=== PATIENT | male | born 1945 | race Caucasian/White ===

== ENCOUNTER 2016-05-29 12:58 | Emergency (ER) | payer MEDICARE, OTHER ==
[~2016-05-29] VITALS: Wt 149.7 kg
--- NOTE | ~2016-05-29 | EKG ---
[place], [place] ELECTROCARDIOGRAM REPORT NAME: JUAN WILDE UNIT #: [id number] ROOM: DOCTOR: ANIRUDH CAMACHO MD BIRTHDATE: [birth year] DOS: 05/29/2016 TIME: 1333 hours. Normal sinus rhythm at 87 beats per minute. The tracing is normal. No previous tracing is available for comparison. ANIRUDH CAMACHO MD CM:EKGRPT:ELECTROCARDIOGRAM REPORT [id number] ANIRUDH CAMACHO MD
[~2016-05-29 12:58] MED LIST: ADVIL200 M1 PO; ANTIVERT/2525 MG PO; ASPIRIN325 M2 PO; ATORVASTATIN CA80 M1 PO; CEPHALEXIN500 M1 PO; D3 DOTS2000 UNIT PO; DARVOCET N 1001 TAB PO; DAYPRO600 M1 PO; DOXYCYCLINE100 MG PO; GLIPIZIDE10 M2 PO; HYDROCODONE BIT1 T11 PO; LAMISIL AT11 TP; LISINOPRIL20 MG PO; MAGNESIUM OXID420 M1 PO; METFORMIN1000 MG PO; NOVOLIN 70100 UNIT/1 SQ; OMEPRAZOLE20 M2 PO; SULFAMETHOXAZOL1 TA1 PO; TERBINAFINE250 MG PO
[2016-05-29 13:35] LABS: BASO % 0.4 % (0.0-1.0); EOS # 0.2 10*3/uL (0.0-0.4); EOS % 2.1 % (1.0-4.0); HEMATOCRIT 43.3 % (42.0-52.0); HEMOGLOBIN 13.5 g/dl (14.0-18.0); LYMPH # 2.4 10*3/uL (1.3-4.4); LYMPH % 28.2 % (27.0-41.0); MEAN CELL VOLUME 87.7 fl (80.0-94.0); MEAN CORPUSCULAR HGB 27.3 pg (27.0-31.0); MEAN CORPUSCULAR HGB CONC 31.2 g/dl (33.0-37.0); MEAN PLATELET VOLUME 10.5 fl (9.6-12.3); MONO # 0.5 10*3/uL (0.1-1.0); NEUT # 5.4 10*3/uL (2.3-7.9); NEUT % 63.1 % (47.0-73.0); PLATELET COUNT AUTOMATED 200 10*3/uL (130-400); RED BLOOD COUNT 4.94 10*6/uL (4.50-5.90); RED CELL DISTRI WIDTH 15.1 % (0-14.5); WHITE BLOOD COUNT 8.6 10*3/uL (4.8-10.8)
[2016-05-29 13:43] LABS: PROTHROMBIN TIME 10.5 SECONDS (9.0-12.4)
[2016-05-29 13:51] LABS: ALBUMIN 3.3 gm/dl (3.1-4.5); ALKALINE PHOSPHATASE 102 U/L (45-117); BILIRUBIN, TOTAL 0.4 mg/dl (0.2-1.0); BUN 24 mg/dl (7-24); CARBON DIOXIDE 27 mmol/L (21-32); CHLORIDE 105 mmol/L (98-107); CPK 91 U/L (39-308); EST GLOM FILT AFRICAN AMERICAN > 60 ml/min; GLUCOSE 169 mg/dL (65-99); MAGNESIUM 1.7 mg/dL (1.5-2.1); POTASSIUM 4.7 mmol/L (3.5-5.1); SGOT/AST 19 IU/L (3-35); SGPT/ALT 31 U/L (12-78); SODIUM 144 mmol/L (136-145); TOTAL PROTEIN 7.1 gm/dL (6.4-8.2)
[2016-05-29 13:53] LABS: CKMB 2.1 ng/ml (0.5-3.6)
[2016-05-29 13:54] LABS: TROPONIN I < 0.015 ng/ml (<0.045)
== END 2016-05-29 15:22 | disposition home or self-care (01) ==
LOC: ED 12:58
PROVIDERS: Registered Nurse
DX: M79.601 Pain in right arm (principal); M47.812 Spondylosis without myelopathy or radiculopathy, cervical region; M19.90 Unspecified osteoarthritis, unspecified site; Z90.89 Acquired absence of other organs; Z79.899 Other long term (current) drug therapy

== ENCOUNTER → 2016-06-12 | Outpatient (CLI) | payer MEDICARE ==
[2016-06-12 15:09] LABS: BASO % 0.4 % (0.0-1.0); EOS # 0.2 10*3/uL (0.0-0.4); EOS % 1.9 % (1.0-4.0); HEMATOCRIT 43.3 % (42.0-52.0); HEMOGLOBIN 13.6 g/dl (14.0-18.0); LYMPH # 2.1 10*3/uL (1.3-4.4); LYMPH % 23.6 % (27.0-41.0); MEAN CELL VOLUME 88.4 fl (80.0-94.0); MEAN CORPUSCULAR HGB 27.8 pg (27.0-31.0); MEAN CORPUSCULAR HGB CONC 31.4 g/dl (33.0-37.0); MEAN PLATELET VOLUME 10.4 fl (9.6-12.3); MONO # 0.6 10*3/uL (0.1-1.0); MONO % 6.5 % (3.0-9.0); NEUT % 67.2 % (47.0-73.0); PLATELET COUNT AUTOMATED 223 10*3/uL (130-400); RED CELL DISTRI WIDTH 14.8 % (0-14.5); WHITE BLOOD COUNT 8.9 10*3/uL (4.8-10.8)
== END | disposition home or self-care (01) ==
LOC: LAB 14:46
PROVIDERS: Physician Assistant
DX: M25.511 Pain in right shoulder (principal); M79.601 Pain in right arm

== ENCOUNTER 2016-09-23 07:59 | Inpatient (IN) | payer OTHER ==
[~2016-09-23] VITALS: Ht 190.5 cm; Wt 156.5 kg
--- NOTE | ~2016-09-23 | PR ---
[place], [place] PROGRESS NOTE NAME: JUAN WILDE [facility] #: [id number] UNIT #: [id number] ROOM: 515 DOCTOR: KRUPA Coulter,SHABNAM BIRTHDATE: [birth year] DOS: 09/25/2016 SUBJECTIVE: The patient reports that he is feeling better. His leg is less tender and less red and there seems to be very little drainage. Unfortunately, the Tubigrip that was recommended is not available as the floors are out of it, so he has not had any type of anything for compression at all. He reports no acute events overnight. OBJECTIVE: VITAL SIGNS: His temperature is 97.6, pulse is 91, respirations are 20 and blood pressure is 122/80. SKIN: The dressing was removed. Overall, the areas appear stable. The erythema that had been advancing definitely seems to have calmed down quite a bit. The leg is much less tender and less swollen overall. LABORATORY DATA: His labs show normal white count. He did have his arterial studies done. Unfortunately they did not do an TAY; however, he does have femoral disease left greater than the right and there is also tibial disease noted, both stenotic and occluded. It does appear that the left is worse than the right. ASSESSMENT AND PLAN: Venous ulceration complicated by diabetes and peripheral arterial disease. The wound appears stable at this time. I would continue with the present treatment and have him definitely followup in the [facility] once medically stabilized. He should follow up with Vascular for any further recommendations or possible intervention if needed. We can use a gentle Dashawn wrap for the left leg, but it has to be very gently applied just during the day, he can remove it at night for now, but I would not use any further compression until the patient has been evaluated by Vascular first. SHABNAM GENTILE MD CM:ISAIAH [id number] SHABNAM GENTILE M.D. 09/30/16 1411 interface
--- NOTE | ~2016-09-23 | CON ---
[place], [place] REPORT OF CONSULTATION NAME: JUAN WILDE [facility] #: [id number] UNIT #: [id number] ROOM: 515 DOCTOR: KRUPA CoulterSHABNAM BIRTHDATE: [birth year] DOS: 09/24/2016 WOUND CARE CONSULTATION HISTORY OF PRESENT ILLNESS: This is a 70-year-old male with a history of diabetes who was admitted to the Emergency Department with complaints of increasing burning sensation over the left lower extremity, erythema and edema and weeping areas of his legs that were seeping large amounts of clear fluid. This has been steadily getting worse over the past week or so. PAST MEDICAL HISTORY: Significant for arthritis, cellulitis of the right foot, degenerative joint disease of the cervical spine, diabetes, diabetic ulcer of the toe, failure of outpatient treatment, GERD with esophagitis, history of prostate cancer, hyperlipidemia, hypertension, left arm pain and musculoskeletal arm pain. PAST SURGICAL HISTORY: He is status post prostatectomy. SOCIAL HISTORY: He does not smoke or drink. ALLERGIES: No known drug allergies. FAMILY HISTORY: Significant for lung disease in the father and lung disease in his mother. MEDICATIONS: From home are metformin 1000 p.o. b.i.d., lisinopril 20 p.o. daily, glipizide 10 mg p.o. daily, vitamin D3 2000 units daily, Advil 200 mg p.o. p.r.n. for pain, magnesium oxide 420 p.o. daily, omeprazole 20 mg p.o. daily, insulin NPH 70/30 100 units subq b.i.d. He is on Omnicef 300 p.o. b.i.d. for 10 days and Vicodin one tablet p.o. q.4 h. p.r.n. for pain. ALLERGIES: None. REVIEW OF SYSTEMS: He still has some discomfort of his left leg. It is much worse when people manipulate or change dressings. There is still erythema noted. He denies any fevers or chills, nausea, vomiting, abdominal pains, or diarrhea. He says his breathing is comfortable. His left leg seems to be more swollen than the right. I have asked him if he has ever had Unna boots before. He said they have used Unna boots several years ago on the right lower extremity, but he has never really had anything on the left lower extremity. PHYSICAL EXAMINATION: VITAL SIGNS: Temperature is 98.3, pulse of 86, respirations 20, blood pressure is 136/72. GENERAL: This male, is in no acute distress, pleasant and cooperative to examination. Mildly obese. HEENT: Oropharynx is clear. Extraocular movements are intact. NECK: Supple. LUNGS: Clear to auscultation. CARDIOVASCULAR: S1, S2 regular rate and rhythm. [place], [place] REPORT OF CONSULTATION NAME: JUAN WILDE UNIT #: [id number] ROOM: [facility] DOCTOR: KRUPA CoulterSHABNAM BIRTHDATE: [birth year] ABDOMEN: Morbidly obese, soft and nontender. 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 The right lower extremity is nontender. His left lower extremity, he has extending erythema up to the knee. There is severe stasis dermatitis. There is no calf pain. There is edema noted. There are two crusted lesions on the anterior leg that appear to be drying up at this time. There is an open area on the posterior left calf that is also superficial, but weeping clear serous fluid, I would say is approximately 4 cm x 3.5 cm. The pedal pulses are difficult to feel due to the chronic skin thickening. His toes are warm, however, and there is good capillary refill. He has had a venous Doppler done which showed no evidence of a DVT. LABORATORY DATA: Showing a white count of 7, hemoglobin of 11.8, hematocrit of 38.1, platelets of 176. His Chem-7 shows a sodium of 141, chloride 109, BUN of 26, creatinine 1.23, glucose is elevated at 193. His hemoglobin A1c is 8.4. Triglycerides are 169. Vitamin B12 was low. Blood cultures are negative so far. ASSESSMENT AND PLAN: Venous ulceration of the left lower leg with cellulitis and stasis dermatitis. I would like to obtain an arterial ultrasound to see what his vascular status is and consider compression management once the cellulitis has improved somewhat. In the meantime, we will use Bactroban and Adaptic to the wounds to help prevent adherence as well as a Tubigrip for edema control in the meantime. We will encourage leg elevation. He is on IV vancomycin and Zosyn. This patient will likely need wound care followup once he is medically stable. SHABNAM GENTILE MD CM:CONSTR:REPORT OF CONSULTATION 1630 09/24/16 2241 interface
[~2016-09-23 07:59] MED LIST changes: +OMNICEF300 MG PO
[2016-09-23 08:08] VITALS: BP 145/18
[2016-09-23 08:34] LABS: BASO % 0.3 % (0.0-1.0); EOS # 0.2 10*3/uL (0.0-0.4); EOS % 3.5 % (1.0-4.0); HEMATOCRIT 40.6 % (42.0-52.0); HEMOGLOBIN 12.6 g/dl (14.0-18.0); LYMPH # 1.8 10*3/uL (1.3-4.4); LYMPH % 26.4 % (27.0-41.0); MEAN CELL VOLUME 91.6 fl (80.0-94.0); MEAN CORPUSCULAR HGB 28.4 pg (27.0-31.0); MEAN PLATELET VOLUME 10.7 fl (9.6-12.3); MONO # 0.5 10*3/uL (0.1-1.0); MONO % 7.2 % (3.0-9.0); NEUT # 4.3 10*3/uL (2.3-7.9); PLATELET COUNT AUTOMATED 181 10*3/uL (130-400); RED BLOOD COUNT 4.43 10*6/uL (4.50-5.90); RED CELL DISTRI WIDTH 14.4 % (0-14.5); WHITE BLOOD COUNT 6.9 10*3/uL (4.8-10.8)
[2016-09-23 08:46] LABS: POTASSIUM 4.7 mmol/L (3.5-5.1)
[2016-09-23] MEDS ORDERED: LEVOFLOXACIN500 MG PO (10:30)
[2016-09-23 10:32] LABS: LA>2 REFLEX 2 HR DRAW NOW
[2016-09-23 23:31] VITALS: BP 158/74
[2016-09-24 00:46] LABS: BASO % 0.4 % (0.0-1.0); EOS # 0.3 10*3/uL (0.0-0.4); EOS % 3.1 % (1.0-4.0); HEMATOCRIT 40.8 % (42.0-52.0); HEMOGLOBIN 12.6 g/dl (14.0-18.0); LYMPH # 2.1 10*3/uL (1.3-4.4); LYMPH % 26.3 % (27.0-41.0); MEAN CELL VOLUME 91.5 fl (80.0-94.0); MEAN CORPUSCULAR HGB 28.3 pg (27.0-31.0); MEAN CORPUSCULAR HGB CONC 30.9 g/dl (33.0-37.0); MEAN PLATELET VOLUME 10.2 fl (9.6-12.3); MONO # 0.6 10*3/uL (0.1-1.0); MONO % 7.9 % (3.0-9.0); NEUT % 61.9 % (47.0-73.0); PLATELET COUNT AUTOMATED 196 10*3/uL (130-400); RED BLOOD COUNT 4.46 10*6/uL (4.50-5.90); RED CELL DISTRI WIDTH 14.5 % (0-14.5)
[2016-09-24 00:59] LABS: POTASSIUM 5.4 mmol/L (3.5-5.1)
[2016-09-24 02:45] VITALS: BP 147/70
[2016-09-24 02:49] VITALS: BP 147/70
[2016-09-24 05:39] LABS: BUN 23 mg/dl (7-24); CARBON DIOXIDE 29 mmol/L (21-32); CHLORIDE 109 mmol/L (98-107); CHOLESTEROL 132 mg/dL (<200); EST GLOM FILT AFRICAN AMERICAN > 60 ml/min; GLUCOSE 193 mg/dL (65-99); HDL CHOLESTEROL 28 mg/dl (40-60); LDL CHOLESTEROL 70 mg/dL (9-159); POTASSIUM 4.6 mmol/L (3.5-5.1); SODIUM 141 mmol/L (136-145); TRIGLYCERIDES 169 mg/dl (<150); VLDL CHOLESTEROL 34 mg/dL (6-40)
[2016-09-24 06:04] LABS: BASO % 0.6 % (0.0-1.0); EOS # 0.3 10*3/uL (0.0-0.4); EOS % 3.7 % (1.0-4.0); HEMATOCRIT 38.1 % (42.0-52.0); HEMOGLOBIN 11.8 g/dl (14.0-18.0); LYMPH % 28.8 % (27.0-41.0); MEAN CELL VOLUME 92.3 fl (80.0-94.0); MEAN CORPUSCULAR HGB 28.6 pg (27.0-31.0); MEAN PLATELET VOLUME 11.1 fl (9.6-12.3); MONO # 0.6 10*3/uL (0.1-1.0); MONO % 8.5 % (3.0-9.0); PLATELET COUNT AUTOMATED 176 10*3/uL (130-400); RED BLOOD COUNT 4.13 10*6/uL (4.50-5.90); RED CELL DISTRI WIDTH 14.5 % (0-14.5)
[2016-09-24 06:24] LABS: PROTHROMBIN TIME 10.9 SECONDS (9.0-12.4)
[2016-09-24 06:37] LABS: HEMOGLOBIN A1c 8.4 % (4.8-5.6)
[2016-09-24 07:30] LABS: FOLIC ACID 12.41 ng/mL (>5.38)
[2016-09-24 08:00] VITALS: BP 141/76
[2016-09-24 12:00] VITALS: BP 136/72
[2016-09-24 16:00] VITALS: BP 146/77
[2016-09-24 20:00] VITALS: BP 165/83
[2016-09-25] VITALS: BP 160/60
[2016-09-25 03:35] LABS: BASO % 0.5 % (0.0-1.0); EOS # 0.3 10*3/uL (0.0-0.4); EOS % 4.9 % (1.0-4.0); HEMATOCRIT 38.6 % (42.0-52.0); HEMOGLOBIN 12.1 g/dl (14.0-18.0); LYMPH # 2.1 10*3/uL (1.3-4.4); LYMPH % 31.2 % (27.0-41.0); MEAN CORPUSCULAR HGB 28.2 pg (27.0-31.0); MEAN CORPUSCULAR HGB CONC 31.3 g/dl (33.0-37.0); MEAN PLATELET VOLUME 10.8 fl (9.6-12.3); MONO # 0.5 10*3/uL (0.1-1.0); MONO % 7.6 % (3.0-9.0); NEUT # 3.7 10*3/uL (2.3-7.9); NEUT % 55.5 % (47.0-73.0); PLATELET COUNT AUTOMATED 159 10*3/uL (130-400); RED BLOOD COUNT 4.29 10*6/uL (4.50-5.90); RED CELL DISTRI WIDTH 14.1 % (0-14.5); WHITE BLOOD COUNT 6.6 10*3/uL (4.8-10.8)
[2016-09-25 03:48] LABS: BUN 16 mg/dl (7-24); CARBON DIOXIDE 29 mmol/L (21-32); CHLORIDE 104 mmol/L (98-107); EST GLOM FILT AFRICAN AMERICAN > 60 ml/min; GLUCOSE 206 mg/dL (65-99); POTASSIUM 4.8 mmol/L (3.5-5.1); SODIUM 138 mmol/L (136-145)
[2016-09-25 08:00] VITALS: BP 122/80
[2016-09-25 12:00] VITALS: BP 152/68
[2016-09-25 16:00] VITALS: BP 137/75
[2016-09-25 20:00] VITALS: BP 151/69
[2016-09-26] VITALS: BP 132/64
[2016-09-26 06:26] LABS: BASO % 0.4 % (0.0-1.0); EOS # 0.3 10*3/uL (0.0-0.4); EOS % 4.1 % (1.0-4.0); HEMATOCRIT 40.7 % (42.0-52.0); LYMPH # 2.2 10*3/uL (1.3-4.4); LYMPH % 31.2 % (27.0-41.0); MEAN CELL VOLUME 90.2 fl (80.0-94.0); MEAN CORPUSCULAR HGB 28.8 pg (27.0-31.0); MEAN CORPUSCULAR HGB CONC 31.9 g/dl (33.0-37.0); MONO # 0.5 10*3/uL (0.1-1.0); MONO % 6.9 % (3.0-9.0); NEUT # 4.1 10*3/uL (2.3-7.9); PLATELET COUNT AUTOMATED 184 10*3/uL (130-400); RED BLOOD COUNT 4.51 10*6/uL (4.50-5.90); RED CELL DISTRI WIDTH 13.9 % (0-14.5); WHITE BLOOD COUNT 7.2 10*3/uL (4.8-10.8)
[2016-09-26 06:44] LABS: BUN 17 mg/dl (7-24); CARBON DIOXIDE 27 mmol/L (21-32); CHLORIDE 104 mmol/L (98-107); EST GLOM FILT AFRICAN AMERICAN > 60 ml/min; GLUCOSE 277 mg/dL (65-99); SODIUM 136 mmol/L (136-145)
[2016-09-26 08:00] VITALS: BP 123/70
[2016-09-26] MEDS ORDERED: DOXYCYCLINE100 M3 PO (10:28)
[2016-09-26] MEDS ORDERED: B12,B-12,B 12500 MC1 PO (10:28)
[2016-09-26 12:00] VITALS: BP 125/89
== END 2016-09-26 16:28 | disposition home or self-care (01) | DRG 871 ==
LOC: ED 07:59 → EDHOLD 09-24 01:58 → 5E 09-24 01:58
PROVIDERS: Emergency Medicine; Emergency Medicine Emergency Medical Services; Internal Medicine; Internal Medicine Nephrology
DX: A41.9 Sepsis, unspecified organism (principal); N17.0 Acute kidney failure with tubular necrosis; L03.116 Cellulitis of left lower limb; Z68.41 Body mass index [BMI] 40.0-44.9, adult; L97.929 Non-pressure chronic ulcer of unspecified part of left lower leg with unspecified severity; R65.20 Severe sepsis without septic shock; M19.90 Unspecified osteoarthritis, unspecified site; E87.5 Hyperkalemia; E11.51 Type 2 diabetes mellitus with diabetic peripheral angiopathy without gangrene; I70.203 Unspecified atherosclerosis of native arteries of extremities, bilateral legs; I87.2 Venous insufficiency (chronic) (peripheral); E11.65 Type 2 diabetes mellitus with hyperglycemia; K21.9 Gastro-esophageal reflux disease without esophagitis; N18.3 Chronic kidney disease, stage 3 (moderate); E53.8 Deficiency of other specified B group vitamins; E11.22 Type 2 diabetes mellitus with diabetic chronic kidney disease; I12.9 Hypertensive chronic kidney disease with stage 1 through stage 4 chronic kidney disease, or unspecified chronic kidney disease; E66.01 Morbid (severe) obesity due to excess calories; Z79.4 Long term (current) use of insulin; Z79.84 Long term (current) use of oral hypoglycemic drugs; Z79.899 Other long term (current) drug therapy; Z85.46 Personal history of malignant neoplasm of prostate; Z90.79 Acquired absence of other genital organ(s); Z83.6 Family history of other diseases of the respiratory system

== ENCOUNTER 2017-08-05 19:49 | Emergency (ER) | payer MEDICARE, OTHER ==
[~2017-08-05] VITALS: Wt 149.7 kg
[~2017-08-05 19:49] MED LIST changes: +B12,B-12,B 12500 MC1 PO; +DOXYCYCLINE100 M3 PO; +LEVOFLOXACIN500 MG PO
== END 2017-08-05 21:16 | disposition home or self-care (01) ==
LOC: ED 19:49
DX: S86.911A Strain of unspecified muscle(s) and tendon(s) at lower leg level, right leg, initial encounter (principal); Z90.89 Acquired absence of other organs; Z79.899 Other long term (current) drug therapy; Z79.4 Long term (current) use of insulin; X50.1XXA Overexertion from prolonged static or awkward postures, initial encounter; Y93.89 Activity, other specified; Y92.89 Other specified places as the place of occurrence of the external cause; Y99.9 Unspecified external cause status

== ENCOUNTER 2019-07-25 17:13 | Inpatient (IN) | payer MEDICARE, OTHER ==
[~2019-07-25] VITALS: Ht 188 cm; Wt 158.0 kg
[2019-07-25 17:32] VITALS: BP 164/96
[2019-07-25 18:54] LABS: BASO % 0.4 % (0.0-1.0); EOS # 0.2 10*3/uL (0.0-0.4); EOS % 2.6 % (1.0-4.0); HEMATOCRIT 40.6 % (42.0-52.0); LYMPH # 1.7 10*3/uL (1.3-4.4); LYMPH % 22.3 % (27.0-41.0); MEAN CELL VOLUME 92.3 fl (80.0-94.0); MEAN CORPUSCULAR HGB 27.7 pg (27.0-31.0); MEAN PLATELET VOLUME 10.4 fl (9.6-12.3); MONO # 0.5 10*3/uL (0.1-1.0); MONO % 6.5 % (3.0-9.0); NEUT # 5.2 10*3/uL (2.3-7.9); NEUT % 67.9 % (47.0-73.0); PLATELET COUNT AUTOMATED 210 10*3/uL (130-400); RED CELL DISTRI WIDTH 14.4 % (0-14.5); WHITE BLOOD COUNT 7.7 10*3/uL (4.8-10.8)
[2019-07-25 19:10] LABS: ALBUMIN 2.9 gm/dl (3.1-4.5); ALKALINE PHOSPHATASE 83 U/L (45-117); BUN 22 mg/dl (7-24); CHLORIDE 105 mmol/L (98-107); LIPASE 99 U/L (73-393); POTASSIUM 4.7 mmol/L (3.5-5.1); SGOT/AST 13 IU/L (3-35); SGPT/ALT 26 U/L (12-78); SODIUM 137 mmol/L (136-145); TOTAL PROTEIN 7.2 gm/dL (6.4-8.2); TROPONIN I 0.021 ng/ml (<0.045)
[2019-07-25 19:12] LABS: ACT PARTIAL THROMBO TIME 26.8 SECONDS (20.0-32.1)
[2019-07-25 21:40] VITALS: BP 159/88
[2019-07-25 21:49] VITALS: BP 176/88
[2019-07-25] MEDS ORDERED: METOPROLOL25 MG PO (22:40)
[2019-07-25] MEDS ORDERED: CRESTOR5 MG PO (22:43)
[2019-07-26] VITALS: BP 147/73
[2019-07-26] MEDS ORDERED: HUMULIN 70/30 703 M1 SQ ×2 (02:26→02:28)
[2019-07-26 05:59] LABS: BASO % 0.5 % (0.0-1.0); EOS # 0.2 10*3/uL (0.0-0.4); EOS % 1.9 % (1.0-4.0); HEMATOCRIT 41.5 % (42.0-52.0); LYMPH % 24.5 % (27.0-41.0); MEAN CORPUSCULAR HGB 27.6 pg (27.0-31.0); MEAN CORPUSCULAR HGB CONC 29.6 g/dl (33.0-37.0); MEAN PLATELET VOLUME 10.1 fl (9.6-12.3); MONO # 0.7 10*3/uL (0.1-1.0); NEUT # 5.3 10*3/uL (2.3-7.9); NEUT % 64.7 % (47.0-73.0); PLATELET COUNT AUTOMATED 209 10*3/uL (130-400); RED BLOOD COUNT 4.46 10*6/uL (4.50-5.90); RED CELL DISTRI WIDTH 14.6 % (0-14.5); WHITE BLOOD COUNT 8.2 10*3/uL (4.8-10.8)
[2019-07-26 06:24] LABS: BUN 21 mg/dl (7-24); CHLORIDE 105 mmol/L (98-107); CHOLESTEROL 105 mg/dL (<200); CREATININE 1.16 mg/dL (0.70-1.30); FREE T4 0.93 ng/dl (0.76-1.46); HDL CHOLESTEROL 34 mg/dl (40-60); LDL CHOLESTEROL 50 mg/dL (9-159); POTASSIUM 4.8 mmol/L (3.5-5.1); SODIUM 139 mmol/L (136-145); TRIGLYCERIDES 103 mg/dl (<150); VLDL CHOLESTEROL 21 mg/dL (6-40)
[2019-07-26 06:43] LABS: VITAMIN D, 25-HYDROXY 44.5 ng/mL (30-100)
[2019-07-26 08:00] VITALS: BP 131/74
[2019-07-26 12:00] VITALS: BP 115/75
[2019-07-26 16:00] VITALS: BP 127/65
[2019-07-26 20:00] VITALS: BP 124/77
[2019-07-27] VITALS: BP 119/81
[2019-07-27 06:45] LABS: BASO % 0.4 % (0.0-1.0); EOS # 0.2 10*3/uL (0.0-0.4); HEMATOCRIT 40.2 % (42.0-52.0); LYMPH # 2.1 10*3/uL (1.3-4.4); LYMPH % 27.8 % (27.0-41.0); MEAN CELL VOLUME 93.9 fl (80.0-94.0); MEAN CORPUSCULAR HGB 27.8 pg (27.0-31.0); MEAN CORPUSCULAR HGB CONC 29.6 g/dl (33.0-37.0); MEAN PLATELET VOLUME 10.7 fl (9.6-12.3); MONO # 0.6 10*3/uL (0.1-1.0); MONO % 8.4 % (3.0-9.0); NEUT # 4.5 10*3/uL (2.3-7.9); NEUT % 61.1 % (47.0-73.0); PLATELET COUNT AUTOMATED 188 10*3/uL (130-400); RED BLOOD COUNT 4.28 10*6/uL (4.50-5.90); RED CELL DISTRI WIDTH 14.6 % (0-14.5); WHITE BLOOD COUNT 7.4 10*3/uL (4.8-10.8)
[2019-07-27 07:09] LABS: BUN 22 mg/dl (7-24); CHLORIDE 105 mmol/L (98-107); CREATININE 1.19 mg/dL (0.70-1.30); POTASSIUM 4.9 mmol/L (3.5-5.1); SODIUM 139 mmol/L (136-145)
[2019-07-27 07:55] VITALS: BP 120/72
[2019-07-27 12:00] VITALS: BP 126/57
[2019-07-27 16:00] VITALS: BP 127/88
[2019-07-27 20:00] VITALS: BP 163/95
[2019-07-27 20:30] VITALS: BP 140/86
[2019-07-28] VITALS: BP 131/90
[2019-07-28 06:23] LABS: BASO % 0.4 % (0.0-1.0); EOS # 0.2 10*3/uL (0.0-0.4); EOS % 2.9 % (1.0-4.0); HEMATOCRIT 40.1 % (42.0-52.0); LYMPH # 1.8 10*3/uL (1.3-4.4); MEAN CELL VOLUME 92.8 fl (80.0-94.0); MEAN CORPUSCULAR HGB CONC 30.2 g/dl (33.0-37.0); MEAN PLATELET VOLUME 10.5 fl (9.6-12.3); MONO # 0.7 10*3/uL (0.1-1.0); MONO % 8.9 % (3.0-9.0); NEUT # 4.6 10*3/uL (2.3-7.9); NEUT % 62.4 % (47.0-73.0); PLATELET COUNT AUTOMATED 178 10*3/uL (130-400); RED BLOOD COUNT 4.32 10*6/uL (4.50-5.90); RED CELL DISTRI WIDTH 14.5 % (0-14.5); WHITE BLOOD COUNT 7.3 10*3/uL (4.8-10.8)
[2019-07-28 06:55] LABS: BUN 23 mg/dl (7-24); CHLORIDE 106 mmol/L (98-107); CREATININE 1.39 mg/dL (0.70-1.30); POTASSIUM 4.7 mmol/L (3.5-5.1); SODIUM 140 mmol/L (136-145)
[2019-07-28 08:00] VITALS: BP 123/67
[2019-07-28 12:00] VITALS: BP 120/72
[2019-07-28 16:00] VITALS: BP 149/72
[2019-07-28 20:00] VITALS: BP 129/87
[2019-07-29] VITALS: BP 123/83
[2019-07-29 06:56] LABS: BASO % 0.3 % (0.0-1.0); EOS # 0.2 10*3/uL (0.0-0.4); EOS % 3.4 % (1.0-4.0); HEMATOCRIT 38.4 % (42.0-52.0); LYMPH # 1.8 10*3/uL (1.3-4.4); LYMPH % 25.9 % (27.0-41.0); MEAN CELL VOLUME 93.9 fl (80.0-94.0); MEAN CORPUSCULAR HGB 28.1 pg (27.0-31.0); MEAN CORPUSCULAR HGB CONC 29.9 g/dl (33.0-37.0); MEAN PLATELET VOLUME 10.9 fl (9.6-12.3); MONO # 0.5 10*3/uL (0.1-1.0); MONO % 7.5 % (3.0-9.0); NEUT # 4.2 10*3/uL (2.3-7.9); NEUT % 62.5 % (47.0-73.0); PLATELET COUNT AUTOMATED 188 10*3/uL (130-400); RED BLOOD COUNT 4.09 10*6/uL (4.50-5.90); RED CELL DISTRI WIDTH 14.3 % (0-14.5); WHITE BLOOD COUNT 6.8 10*3/uL (4.8-10.8)
[2019-07-29 07:07] LABS: BUN 22 mg/dl (7-24); CHLORIDE 106 mmol/L (98-107); CREATININE 1.37 mg/dL (0.70-1.30); POTASSIUM 4.6 mmol/L (3.5-5.1); SODIUM 138 mmol/L (136-145)
[2019-07-29 08:00] VITALS: BP 132/67
[2019-07-29 12:00] VITALS: BP 133/87
[2019-07-29 16:00] VITALS: BP 152/65
[2019-07-29 20:00] VITALS: BP 145/52
[2019-07-30] VITALS: BP 141/75
[2019-07-30 08:00] VITALS: BP 122/68
[2019-07-30 09:29] LABS: BASO % 0.4 % (0.0-1.0); EOS # 0.2 10*3/uL (0.0-0.4); EOS % 2.9 % (1.0-4.0); HEMATOCRIT 40.6 % (42.0-52.0); LYMPH # 1.4 10*3/uL (1.3-4.4); LYMPH % 20.1 % (27.0-41.0); MEAN CELL VOLUME 93.5 fl (80.0-94.0); MEAN CORPUSCULAR HGB 27.9 pg (27.0-31.0); MEAN CORPUSCULAR HGB CONC 29.8 g/dl (33.0-37.0); MEAN PLATELET VOLUME 10.1 fl (9.6-12.3); MONO # 0.5 10*3/uL (0.1-1.0); MONO % 7.3 % (3.0-9.0); NEUT # 4.8 10*3/uL (2.3-7.9); PLATELET COUNT AUTOMATED 185 10*3/uL (130-400); RED BLOOD COUNT 4.34 10*6/uL (4.50-5.90); RED CELL DISTRI WIDTH 14.3 % (0-14.5)
[2019-07-30 09:50] LABS: BUN 21 mg/dl (7-24); CHLORIDE 107 mmol/L (98-107); CREATININE 1.36 mg/dL (0.70-1.30); POTASSIUM 4.7 mmol/L (3.5-5.1); SODIUM 139 mmol/L (136-145)
[2019-07-30] MEDS ORDERED: DOXYCYCLINE100 M3 PO ×2 (11:33→15:43)
[2019-07-30] MEDS ORDERED: DIGOXIN250 MCG PO (11:33)
[2019-07-30] MEDS ORDERED: XARE20MG PO (11:33)
[2019-07-30] MEDS ORDERED: METOPROLOL SUCC50 M1 PO (11:33)
[2019-07-30 12:00] VITALS: BP 140/72
[2019-07-30] MEDS ORDERED: XARELTO20 M1 PO (15:43)
[2019-07-30] MEDS ORDERED: TOPROL XL50 M1 PO (15:43)
[2019-07-30] MEDS ORDERED: DIGITEK250 MCG PO (15:43)
== END 2019-07-30 14:43 | disposition home or self-care (01) | DRG 871 ==
LOC: ED 17:13 → EDHOLD 20:28 → 5E 20:28
PROVIDERS: Emergency Medicine; Internal Medicine; ADMIT Family Medicine
PROC: 4A02XM4 Measurement of Cardiac Total Activity, External Approach (ICD-10-PCS; principal; 2019-07-28)
PROC: 3E073KZ Introduction of Other Diagnostic Substance into Coronary Artery, Percutaneous Approach (ICD-10-PCS; principal; 2019-07-28)
PROC: 0H94XZZ Drainage of Neck Skin, External Approach (ICD-10-PCS; 2019-07-30)
DX: A41.9 Sepsis, unspecified organism (principal); E43 Unspecified severe protein-calorie malnutrition; I50.33 Acute on chronic diastolic (congestive) heart failure; L03.115 Cellulitis of right lower limb; L02.11 Cutaneous abscess of neck; Z68.41 Body mass index [BMI] 40.0-44.9, adult; L03.221 Cellulitis of neck; I13.0 Hypertensive heart and chronic kidney disease with heart failure and stage 1 through stage 4 chronic kidney disease, or unspecified chronic kidney disease; I48.92 Unspecified atrial flutter; I42.0 Dilated cardiomyopathy; L03.116 Cellulitis of left lower limb; D64.9 Anemia, unspecified; E11.65 Type 2 diabetes mellitus with hyperglycemia; E78.5 Hyperlipidemia, unspecified; K21.9 Gastro-esophageal reflux disease without esophagitis; M19.90 Unspecified osteoarthritis, unspecified site; E55.9 Vitamin D deficiency, unspecified; E53.8 Deficiency of other specified B group vitamins; K59.00 Constipation, unspecified; E66.01 Morbid (severe) obesity due to excess calories; I48.91 Unspecified atrial fibrillation; N18.3 Chronic kidney disease, stage 3 (moderate); E11.22 Type 2 diabetes mellitus with diabetic chronic kidney disease; E11.51 Type 2 diabetes mellitus with diabetic peripheral angiopathy without gangrene; I87.2 Venous insufficiency (chronic) (peripheral); Z79.899 Other long term (current) drug therapy; Z79.4 Long term (current) use of insulin; Z83.6 Family history of other diseases of the respiratory system

== ENCOUNTER 2020-09-28 18:58 | Emergency (ER) | payer MEDICARE, OTHER ==
[~2020-09-28] VITALS: Ht 187.9 cm; Wt 124.7 kg
[~2020-09-28 18:58] MED LIST changes: +CRESTOR5 MG PO; +DIGITEK250 MCG PO; +DIGOXIN250 MCG PO; +HUMULIN 70/30 703 M1 SQ; +METOPROLOL SUCC50 M1 PO; +METOPROLOL25 MG PO; +TOPROL XL50 M1 PO; +XARE20MG PO; +XARELTO20 M1 PO
[2020-09-28] MEDS ORDERED: CEPHALEXIN500 M1 PO (20:48)
== END 2020-09-28 20:58 | disposition home or self-care (01) ==
LOC: ED 18:58
DX: S81.812A Laceration without foreign body, left lower leg, initial encounter (principal); W18.09XA Striking against other object with subsequent fall, initial encounter; Y93.89 Activity, other specified; Y92.89 Other specified places as the place of occurrence of the external cause; Y99.8 Other external cause status

== ENCOUNTER → 2022-09-24 | Outpatient (CLI) | payer OTHER | END | disposition home or self-care (01) | LOC: RAD 10:46 | PROVIDERS: ATTEND Podiatrist Primary Podiatric Medicine | DX: L97.528 Non-pressure chronic ulcer of other part of left foot with other specified severity (principal) ==

== ENCOUNTER → 2022-10-16 | Outpatient (CLI) | payer OTHER | END | disposition home or self-care (01) | LOC: NM 07:00 | PROVIDERS: ATTEND Podiatrist Primary Podiatric Medicine | DX: M86.172 Other acute osteomyelitis, left ankle and foot (principal) ==

== ENCOUNTER → 2023-03-20 | Outpatient (CLI) | payer MEDICARE ==
[~2023-03-20] MED LIST changes: +CRESTOR5 M1 PO; -CRESTOR5 MG PO; +DALVANCE500 MG IV; +FISH OIL 1,0001 EAC1 PO; +HYDROCHLOROTH12.5 M2 PO; +JARDIANCE25 MG PO; +LEVOFLOXACIN750 M2 PO; +METRONIDAZOLE500 M1 PO
[2023-03-20 11:53] LABS: BASO % 0.4 % (0.0-1.0); EOS # 0.2 10*3/uL (0.0-0.4); EOS % 2.3 % (1.0-4.0); LYMPH # 2.1 10*3/uL (1.3-4.4); LYMPH % 29.8 % (27.0-41.0); MEAN CELL VOLUME 90.5 fl (80.0-94.0); MEAN CORPUSCULAR HGB 29.1 pg (27.0-31.0); MEAN CORPUSCULAR HGB CONC 32.2 g/dl (33.0-37.0); MEAN PLATELET VOLUME 10.8 fl (9.6-12.3); MONO # 0.5 10*3/uL (0.1-1.0); MONO % 6.6 % (3.0-9.0); NEUT # 4.3 10*3/uL (2.3-7.9); NEUT % 60.5 % (47.0-73.0); PLATELET COUNT AUTOMATED 206 10*3/uL (130-400); RED BLOOD COUNT 4.53 10*6/uL (4.50-5.90); RED CELL DISTRI WIDTH 14.4 % (0-14.5); WHITE BLOOD COUNT 7.1 10*3/uL (4.8-10.8)
== END | disposition home or self-care (01) ==
LOC: LAB 10:14
PROVIDERS: ATTEND Internal Medicine Infectious Disease
DX: M86.9 Osteomyelitis, unspecified (principal)

== ENCOUNTER → 2023-03-27 | Outpatient (CLI) | payer MEDICARE ==
[2023-03-27 12:04] LABS: ALKALINE PHOSPHATASE 58 U/L (46-116); BUN 24 mg/dl (9-23); CHLORIDE 112 mmol/L (98-107); SGPT/ALT 9 U/L (5-49)
== END | disposition home or self-care (01) ==
LOC: LAB 10:50
PROVIDERS: ATTEND Internal Medicine Infectious Disease
DX: M86.9 Osteomyelitis, unspecified (principal)

== ENCOUNTER 2023-03-30 15:05 | Emergency (ER) | payer MEDICARE ==
[~2023-03-30] VITALS: Ht 187.9 cm; Wt 112.5 kg
[2023-03-30] MEDS ORDERED: LISINOPRIL40 MG PO (15:23)
[2023-03-30 17:31] LABS: BASO % 0.4 % (0.0-1.0); EOS # 0.1 10*3/uL (0.0-0.4); EOS % 1.7 % (1.0-4.0); HEMATOCRIT 43.5 % (42.0-52.0); LYMPH # 1.5 10*3/uL (1.3-4.4); LYMPH % 21.2 % (27.0-41.0); MEAN CELL VOLUME 92.8 fl (80.0-94.0); MEAN CORPUSCULAR HGB 28.8 pg (27.0-31.0); MEAN PLATELET VOLUME 9.4 fl (9.6-12.3); MONO # 0.6 10*3/uL (0.1-1.0); MONO % 8.6 % (3.0-9.0); NEUT # 4.7 10*3/uL (2.3-7.9); NEUT % 67.8 % (47.0-73.0); PLATELET COUNT AUTOMATED 184 10*3/uL (130-400); RED BLOOD COUNT 4.69 10*6/uL (4.50-5.90); RED CELL DISTRI WIDTH 14.2 % (0-14.5); WHITE BLOOD COUNT 6.9 10*3/uL (4.8-10.8)
[2023-03-30 17:41] LABS: ACT PARTIAL THROMBO TIME 30.7 SECONDS (20.0-32.1)
[2023-03-30 17:50] LABS: BUN 24 mg/dl (9-23); CHLORIDE 109 mmol/L (98-107); POTASSIUM 4.5 mmol/L (3.4-5.1); URIC ACID 6.9 mg/dL (3.7-9.2)
== END 2023-03-30 19:22 | disposition home or self-care (01) ==
LOC: ED 15:05
PROVIDERS: Nurse Practitioner Family
DX: S92.424A Nondisplaced fracture of distal phalanx of right great toe, initial encounter for closed fracture (principal); R60.0 Localized edema; E11.22 Type 2 diabetes mellitus with diabetic chronic kidney disease; I12.9 Hypertensive chronic kidney disease with stage 1 through stage 4 chronic kidney disease, or unspecified chronic kidney disease; N18.30 Chronic kidney disease, stage 3 unspecified; M19.90 Unspecified osteoarthritis, unspecified site; K21.9 Gastro-esophageal reflux disease without esophagitis; E78.00 Pure hypercholesterolemia, unspecified; E78.5 Hyperlipidemia, unspecified; Z98.890 Other specified postprocedural states; X58.XXXA Exposure to other specified factors, initial encounter; Y93.89 Activity, other specified; Y92.89 Other specified places as the place of occurrence of the external cause; Y99.8 Other external cause status

== ENCOUNTER 2025-01-01 06:19 | Emergency (ER) | payer MEDICARE ==
[~2025-01-01] VITALS: Ht 187.9 cm; Wt 122.5 kg
[~2025-01-01 06:19] MED LIST changes: +LISINOPRIL40 MG PO
[2025-01-01] MEDS ORDERED: EPINEPHrine/Lidocaine Hydroc 20 ML VIAL SC ONE (07:45)
[2025-01-01 08:53] LABS: BASO # 0.0 10*3/uL (0.0-0.1); BASO % 0.6 % (0.0-1.0); EOS # 0.1 10*3/uL (0.0-0.4); EOS % 1.7 % (1.0-4.0); MEAN CELL VOLUME 92.3 fl (80.0-94.0); MEAN CORPUSCULAR HGB 29.1 pg (27.0-31.0); MEAN PLATELET VOLUME 10.2 fl (9.6-12.3); MONO # 0.5 10*3/uL (0.1-1.0); MONO % 7.4 % (3.0-9.0); NEUT # 4.3 10*3/uL (2.3-7.9); NEUT % 63.4 % (47.0-73.0); NUCLEATED RED BLOOD CELL 0.0 % (0.0-0.0); NUCLEATED RED BLOOD CELL 0.0 10*3/uL (0.0-0.0); PLATELET COUNT AUTOMATED 166 10*3/uL (130-400); RED CELL DISTRI WIDTH 13.9 % (0-14.5)
== END 2025-01-01 09:42 | disposition home or self-care (01) ==
LOC: ED 06:19
PROVIDERS: Emergency Medicine
DX: L76.22 Postprocedural hemorrhage of skin and subcutaneous tissue following other procedure (principal); E66.01 Morbid (severe) obesity due to excess calories; E78.5 Hyperlipidemia, unspecified; K21.9 Gastro-esophageal reflux disease without esophagitis; M19.90 Unspecified osteoarthritis, unspecified site; I12.9 Hypertensive chronic kidney disease with stage 1 through stage 4 chronic kidney disease, or unspecified chronic kidney disease; E11.22 Type 2 diabetes mellitus with diabetic chronic kidney disease; N18.30 Chronic kidney disease, stage 3 unspecified; E78.00 Pure hypercholesterolemia, unspecified; Z68.41 Body mass index [BMI] 40.0-44.9, adult